=== PATIENT | female | born 1990 ===

== ENCOUNTER 2017-05-31 15:34 | Emergency (ER) | payer BC ==
[2017-05-31 16:08] VITALS: O2SAT 100
[2017-05-31] MEDS ORDERED: Povidone Iodine Oint 10% Foilpak UD ONE (16:22)
[2017-05-31] MEDS ORDERED: Lidocaine 1% Inj (20ml) ONE (16:22)
[2017-05-31] MEDS ORDERED: Lidocaine 1% (10 ml) Inj INFIL STA (16:50)
[2017-05-31] MEDS ORDERED: Hydrogen Peroxide 3% Soln (480ml) TP ONE (16:53)
[2017-05-31] MEDS ORDERED: Naproxen 500 MG TAB PO STA (17:03)
[2017-05-31] MEDS ORDERED: TDAP Vaccine 0.5 mL Syr IM ONE (17:08)
[2017-05-31] MEDS ORDERED: Naproxen 500 MG TAB PO ONE (17:12)
[2017-05-31 17:37] VITALS: BP 128/78; PULSE 78; RESP 19; TEMP 97.6
--- NOTE | 2017-05-31 18:11 | ED PDOC ---
HPI: General Adult Time Seen by Provider: 05/31/17 15:59 Chief Complaint (Nursing): ENT Problem Chief Complaint (Provider): Ear Pain History Per: Patient History/Exam Limitations: no limitations Additional Complaint(s): Karen Brothers, a 26 year old female, presents to the ED for an ear problem. The patient states that a hoop earring has been in her right hear for 5 years. She states that the earring broke yesterday and a piece of it is stuck in her ear and she cannot get it out. Patient states that she does notice some white discharge. the patient states that the earring was turnign green but she still did not take it out. Past Medical History Reviewed: Historical Data, Nursing Documentation, Vital Signs Vital Signs: Last Vital Signs Temp 97.6 F 05/31/17 17:32 Pulse 78 05/31/17 17:32 Resp 19 05/31/17 17:32 BP 128/78 05/31/17 17:32 Pulse Ox 100 06/02/17 17:30 - Medical History PMH: No Chronic Diseases - Family History Family History: States: Unknown Family Hx - Home Medications Home Medications: Ambulatory Orders Medication Instructions Recorded Ibuprofen [Motrin] 600 mg PO QID PRN #25 tab 06/19/16 Ondansetron [Zofran] 4 mg PO Q8H #0 tab 06/19/16 Cephalexin [cephalexin] 500 mg PO QID #28 cap 05/31/17 Naproxen [Naprosyn] 500 mg PO BID PRN #15 tablet 05/31/17 - Allergies Allergies/Adverse Reactions: Allergies Allergy/AdvReac Type Severity Reaction Status Date / Time No Known Allergies Allergy Verified 12/30/15 16:48 Review of Systems ROS Statement: Except As Marked, All Systems Reviewed And Found Negative ENT: Positive for: Ear Pain Physical Exam - Reviewed Nursing Documentation Reviewed: Yes Vital Signs Reviewed: Yes - Physical Exam Appears: Positive for: Non-toxic, No Acute Distress Head Exam: Positive for: ATRAUMATIC, NORMAL INSPECTION, NORMOCEPHALIC Eye Exam: Positive for: Normal appearance, EOMI, PERRL, Other ENT: Positive for: Other (Broken earring in right ear lobe;no edema; no fluctuance; no active dranage) Neurologic/Psych: Positive for: Alert, Oriented - ECG O2 Sat by Pulse Oximetry: 100 (RA) Pulse Ox Interpretation: Normal Medical Decision Making Medical Decision Makin Initial Impression: 26 year old female presenting with foreign body in ear lobe Initial Plan * Upreg * Boostrix 0.5ml IM * Keflax 500mg PO * Lidocaine 1% [10ml] 1ml INFIL * Naproxen 500mg PO * Reevaluation Foreign body removal was performed. Performed by the emergency provider: Ebony Daugherty Timeout: A timeout to verify the correct patient, procedure, and site was performed immediately prior to the procedure. Indication: Foreign body in ear lobe. Procedure: A #11 blade was used to make a raquel in the earlobe at the piercing site and the foreign body was removed successfully. Post-procedure: Patient tolerated the procedure well with no immediate complications. The foreign body was removed. _ Scribe Attestation Documented by Catherine Miles acting as a scribe for Kerry Simmons MD. Provider Attestation: All medical record entries made by the Scribe were at my direction and personally dictated by me. I have reviewed the chart and agree that the record accurately reflects my personal performance of the history, physical exam, medical decision making, and the department course for this patient. I have also personally directed, reviewed, and agree with the discharge instructions and disposition. Procedures - Time-Out Type of Procedure: Foreign Body Removal Correct Patient (with visual ID + MR# on ID Band): Yes Correct Procedure: Yes Correct Site Marked: Yes Medication Reconciliation / Bloodwork / Allergies Checked: Yes Physician Name: Dr. Ebony Daugherty Disposition - Clinical Impression Clinical Impression: Acute foreign body of earlobe - Disposition Referrals: [facility] [Provider Group] Disposition: Routine/Home Disposition Time: 17:03 Condition: IMPROVED Prescriptions: Cephalexin [cephalexin] 500 mg PO QID #28 cap Naproxen [Naprosyn] 500 mg PO BID PRN #15 tablet PRN Reason: Pain, Moderate (4-7) Instructions: Soft Tissue Foreign Body (ED) Forms: [facility] (I[place]ic)
== END 2017-05-31 17:33 | disposition home or self-care (01) ==
LOC: MERGE 15:34 → H.ER 15:34
DX: S00.459A Superficial foreign body of unspecified ear, initial encounter (principal); W45.8XXA Other foreign body or object entering through skin, initial encounter; Y92.89 Other specified places as the place of occurrence of the external cause